=== PATIENT | female | born 1950 ===

== ENCOUNTER → 2023-08-08 16:16 | Outpatient (REF) | payer MEDICARE, OTHER, SELFPAY | LOC: RAD 16:16 | PROVIDERS: ATTENDING PHYSICIAN Internal Medicine Critical Care Medicine; FAMILY PHYSICIAN Family Medicine | DX: J47.9 Bronchiectasis, uncomplicated (principal); R91.8 Other nonspecific abnormal finding of lung field | CPT/HCPCS: 71250 ==